=== PATIENT | male | born 1985 | race African-American/Black ===

== ENCOUNTER 2018-12-05 10:59 | Emergency (ER) | payer MEDICAID, OTHER ==
--- NOTE | 2018-12-05 12:18 | RAD ---
THREE VIEWS LEFT HAND: INDICATION: Swollen left hand. COMPARISON: None. FINDINGS: There is a benign-appearing ossific density involving the dorsal base of the small finger metacarpal. No acute fracture is evident. There is coalition of the lunate triquetrum which his a normal varia nt. IMPRESSION: No acute osseous abnormality. POS: [facility]
== END 2018-12-05 12:35 | disposition home or self-care (01) ==
LOC: EDSEX 10:59 → MADERS 10:59
DX: M79.642 Pain in left hand (principal)